=== PATIENT | female | born 1950 | race Asian ===

== ENCOUNTER 2017-09-08 11:32 | Emergency (ER) | payer MEDICARE, MEDICAID ==
[~2017-09-08] VITALS: Ht 154.9 cm; Wt 63.6 kg
[2017-09-08 11:58] LABS: GLUCOSE,POINT OF CARE 171 MG/DL (70-110)
[2017-09-08] MEDS ORDERED: METF500T4 PO (12:06)
[2017-09-08] MEDS ORDERED: GLIP5 PO (12:06)
[2017-09-08] MEDS ORDERED: LEVO75 PO (12:06)
[2017-09-08 12:14] VITALS: BP 152/86
[2017-09-08] MEDS ORDERED: BACITRACIN 0.9 GM PACKET OINTMENT TP ONE (12:30)
== END 2017-09-08 12:36 | disposition home or self-care (01) ==
LOC: EMS 11:34
DX: S01.81XA Laceration without foreign body of other part of head, initial encounter (principal); E11.9 Type 2 diabetes mellitus without complications; Z88.0 Allergy status to penicillin; W22.8XXA Striking against or struck by other objects, initial encounter; Y93.89 Activity, other specified; Y92.89 Other specified places as the place of occurrence of the external cause; Y99.8 Other external cause status
CPT/HCPCS: 82962; 99283

== ENCOUNTER → 2018-02-27 | Outpatient (CLI) | payer MEDICARE, MEDICAID ==
[~2018-02-27] MED LIST: GLIP5 PO; LEVO75 PO; METF500T6 PO
== END | disposition home or self-care (01) ==
LOC: RADPV 09:12
PROVIDERS: ATTEND Family Medicine
DX: R05 Cough (principal)

== ENCOUNTER → 2018-03-10 | Outpatient (CLI) | payer MEDICARE, MEDICAID | END | disposition home or self-care (01) | LOC: RADPV 10:46 | PROVIDERS: ATTEND Family Medicine | DX: I70.0 Atherosclerosis of aorta (principal); E11.9 Type 2 diabetes mellitus without complications ==

== ENCOUNTER → 2018-11-27 | Outpatient (CLI) | payer MEDICARE, MEDICAID ==
[~2018-11-27] MED LIST changes: +METF-960 PO; -METF500T6 PO
== END | disposition home or self-care (01) ==
LOC: RADPV 10:25
PROVIDERS: ATTEND Family Medicine
DX: I70.0 Atherosclerosis of aorta (principal); E11.9 Type 2 diabetes mellitus without complications; R05 Cough; R50.9 Fever, unspecified; Z88.0 Allergy status to penicillin

== ENCOUNTER → 2019-03-20 | Outpatient (CLI) | payer MEDICARE, MEDICAID | END | disposition home or self-care (01) | LOC: RADPV 14:22 | PROVIDERS: ATTEND Family Medicine | DX: M25.522 Pain in left elbow (principal) ==

== ENCOUNTER → 2020-08-22 | Outpatient (CLI) | payer MEDICARE, MEDICAID | END | disposition home or self-care (01) | LOC: RADPV 10:46 | PROVIDERS: ATTEND Family Medicine | DX: M19.042 Primary osteoarthritis, left hand (principal) | CPT/HCPCS: 73130-TC ==

== ENCOUNTER → 2021-01-25 | Outpatient (CLI) | payer MEDICARE, MEDICAID | END | disposition home or self-care (01) | LOC: RADPV 10:17 | PROVIDERS: ATTEND Family Medicine | DX: I70.0 Atherosclerosis of aorta (principal); I67.2 Cerebral atherosclerosis; I67.82 Cerebral ischemia; I63.81 Other cerebral infarction due to occlusion or stenosis of small artery; G93.89 Other specified disorders of brain; R05 Cough; R06.02 Shortness of breath; R51.9 Headache, unspecified | CPT/HCPCS: 70450; 71046 ==

== ENCOUNTER → 2021-02-07 | Outpatient (CLI) | payer MEDICARE, MEDICAID | END | disposition home or self-care (01) | LOC: RADPV 11:44 | PROVIDERS: ATTEND Family Medicine | DX: M85.88 Other specified disorders of bone density and structure, other site (principal); M41.86 Other forms of scoliosis, lumbar region; M41.84 Other forms of scoliosis, thoracic region; M51.36 Other intervertebral disc degeneration, lumbar region; I70.0 Atherosclerosis of aorta | CPT/HCPCS: 72100; 73521 ==

== ENCOUNTER → 2021-02-24 | Outpatient (CLI) | payer MEDICARE, MEDICAID | END | disposition home or self-care (01) | LOC: RADPV 08:13 | PROVIDERS: ATTEND Family Medicine | DX: K80.20 Calculus of gallbladder without cholecystitis without obstruction (principal) | CPT/HCPCS: 76700 ==

== ENCOUNTER → 2021-03-24 | Outpatient (CLI) | payer MEDICARE, MEDICAID | END | disposition home or self-care (01) | LOC: HBOWC 10:19 | PROVIDERS: ATTEND Podiatrist | DX: E11.622 Type 2 diabetes mellitus with other skin ulcer (principal); L97.811 Non-pressure chronic ulcer of other part of right lower leg limited to breakdown of skin; E78.5 Hyperlipidemia, unspecified; M41.84 Other forms of scoliosis, thoracic region; M41.86 Other forms of scoliosis, lumbar region; Z79.84 Long term (current) use of oral hypoglycemic drugs; Z85.89 Personal history of malignant neoplasm of other organs and systems; Z87.891 Personal history of nicotine dependence | CPT/HCPCS: 97597; G0463; 99205 ==

== ENCOUNTER → 2021-03-31 | Outpatient (CLI) | payer MEDICARE, MEDICAID | END | disposition home or self-care (01) | LOC: HBOWC 10:34 | PROVIDERS: ATTEND Podiatrist | DX: E11.622 Type 2 diabetes mellitus with other skin ulcer (principal); L97.811 Non-pressure chronic ulcer of other part of right lower leg limited to breakdown of skin; E78.5 Hyperlipidemia, unspecified; M41.84 Other forms of scoliosis, thoracic region; M41.86 Other forms of scoliosis, lumbar region; L84 Corns and callosities; M85.80 Other specified disorders of bone density and structure, unspecified site; I70.0 Atherosclerosis of aorta; Z79.84 Long term (current) use of oral hypoglycemic drugs; Z85.89 Personal history of malignant neoplasm of other organs and systems; Z87.891 Personal history of nicotine dependence; Z88.0 Allergy status to penicillin | CPT/HCPCS: 97597; G0463 ==

== ENCOUNTER → 2021-04-07 | Outpatient (CLI) | payer MEDICARE, MEDICAID | END | disposition home or self-care (01) | LOC: HBOWC 10:28 | PROVIDERS: ATTEND Podiatrist | DX: E11.622 Type 2 diabetes mellitus with other skin ulcer (principal); L97.811 Non-pressure chronic ulcer of other part of right lower leg limited to breakdown of skin; E78.5 Hyperlipidemia, unspecified; M41.84 Other forms of scoliosis, thoracic region; M41.86 Other forms of scoliosis, lumbar region; L84 Corns and callosities; M85.80 Other specified disorders of bone density and structure, unspecified site; I70.0 Atherosclerosis of aorta; Z79.84 Long term (current) use of oral hypoglycemic drugs; Z85.89 Personal history of malignant neoplasm of other organs and systems; Z87.891 Personal history of nicotine dependence; Z88.0 Allergy status to penicillin | CPT/HCPCS: G0463; Z7500 ==

== ENCOUNTER → 2021-05-24 | Outpatient (CLI) | payer MEDICARE, MEDICAID | END | disposition home or self-care (01) | LOC: RADPV 09:40 | PROVIDERS: ATTEND Family Medicine | DX: M19.042 Primary osteoarthritis, left hand (principal); M85.842 Other specified disorders of bone density and structure, left hand | CPT/HCPCS: 73130-TC ==

== ENCOUNTER 2022-07-05 14:46 | Emergency (ER) | payer MEDICARE, MEDICAID ==
[~2022-07-05] VITALS: Ht 154.9 cm; Wt 56.8 kg
[~2022-07-05 14:46] MED LIST changes: -GLIP5 PO; +GLIP5TAB12 PO; +METF-1211 PO; -METF-960 PO
[2022-07-05] MEDS ORDERED: IBUPROFEN 400 MG TABLET PO ONE (15:45)
[2022-07-05] MEDS ORDERED: ACETAMINOPHEN 500 MG TABLET PO ONE (15:45)
[2022-07-05] MEDS ORDERED: ACET-66 PO (18:35)
[2022-07-05] MEDS ORDERED: IBUP-426 PO (18:35)
[2022-07-05 19:00] VITALS: BP 156/70
== END 2022-07-05 23:56 | disposition home or self-care (01) ==
LOC: EMS 23:56
DX: S13.4XXA Sprain of ligaments of cervical spine, initial encounter (principal); S39.012A Strain of muscle, fascia and tendon of lower back, initial encounter; S80.02XA Contusion of left knee, initial encounter; E11.9 Type 2 diabetes mellitus without complications; D32.9 Benign neoplasm of meninges, unspecified; G20 Parkinson's disease; V49.9XXA Car occupant (driver) (passenger) injured in unspecified traffic accident, initial encounter; Y93.89 Activity, other specified; Y92.89 Other specified places as the place of occurrence of the external cause; Y99.8 Other external cause status; Z85.3 Personal history of malignant neoplasm of breast; Z88.0 Allergy status to penicillin; Z86.011 Personal history of benign neoplasm of the brain; Z90.12 Acquired absence of left breast and nipple
CPT/HCPCS: 72040; 72070; 72100; 82962; 99284

== ENCOUNTER 2023-07-16 08:48 | Emergency (ER) | payer MEDICARE, MEDICAID ==
[~2023-07-16] VITALS: Ht 147.3 cm; Wt 62.1 kg
[~2023-07-16 08:48] MED LIST changes: +ACET-66 PO; +ATOR20TA65 PO; +EZET10TA57 PO; +FAMO20TA8 PO; +GABA-1181 PO; -GLIP5TAB12 PO; +GLIP5TAB15 PO; +IBUP-426 PO; +LEVO100 PO; -LEVO75 PO; +OMEP40CA21 PO
[2023-07-16 09:03] VITALS: TEMP 98.4
[2023-07-16] MEDS ORDERED: SODIUM CHLORIDE 0.9% 1,000 ML IV ONE ×2 (09:15→10:15)
[2023-07-16 09:32] LABS: BASOPHILS % (AUTO) 0.5 % (0.0-2.0); EOSINOPHILS % (AUTO) 1.3 % (1.0-6.0); HEMOGLOBIN 11.6 g/dL (12.0-16.0); LYMPHOCYTES # (AUTO) 0.6 K/uL (1.0-4.8); LYMPHOCYTES % (AUTO) 8.2 % (22.0-44.0); MEAN CORPUSCULAR HEMOGLOBIN 29.5 pg (26.0-34.0); MEAN CORPUSCULAR HGB CONC 33.1 G/dL (31.0-37.0); MEAN CORPUSCULAR VOLUME 89 fL (80-100); MONOCYTES # (AUTO) 0.5 K/uL (0.1-1.0); MONOCYTES % (AUTO) 6.3 % (2.0-9.0); NEUTROPHILS # (AUTO) 6.3 K/uL (1.8-7.7); NEUTROPHILS % (AUTO) 83.7 % (40.0-70.0); PLATELET COUNT (AUTO) 223 K/uL (150-450); RED BLOOD CELL COUNT(AUTO) 3.92 MIL/uL (4.00-5.20); RED CELL DISTRIBUTION WIDTH 13.6 % (11.5-14.5); WHITE BLOOD COUNT (AUTO) 7.5 K/uL (4.5-11.0)
[2023-07-16 09:42] LABS: ANION GAP 6 mmol/L (8-16); CALCIUM, TOTAL 8.1 mg/dL (8.8-10.5); CARBON DIOXIDE 31 mmol/L (22-29); CHLORIDE 97 mmol/L (98-107); CREATININE 0.91 mg/dL (0.60-1.30); GLOMERULAR FILTR. RATE CALC > 60 mL/min (>60); GLUCOSE,RANDOM 247 mg/dL (70-110); POTASSIUM 3.9 mmol/L (3.5-5.1); SODIUM SERUM 134 mmol/L (136-145); UREA NITROGEN, BLOOD 5 mg/dL (7-18)
[2023-07-16 09:51] LABS: TROPONIN I-HIGH SENSITIVITY Less Than 4 ng/L (<51)
[2023-07-16] MEDS ORDERED: ACETAMINOPHEN 500 MG TABLET PO ONE (10:15)
[2023-07-16 10:25] LABS: COVID AG,FIA SOURCE NASAL SWAB
[2023-07-16 10:44] LABS: SARS-COV2 (COVID) ANTIGEN,FIA Negative (Negative)
[2023-07-16 10:45] LABS: INFLUENZA TYPE A NEGATIVE FOR TYPE A (NEGATIVE); INFLUENZA TYPE B NEGATIVE FOR TYPE B (NEGATIVE)
[2023-07-16 11:03] VITALS: BP 128/71; PULSE 108; RESP 19
[2023-07-16 12:41] LABS: GLUCOMETER DEV NAME(LOC) ER.6; GLUCOSE,POINT OF CARE 216 MG/DL (70-110)
== END 2023-07-16 11:45 | disposition home or self-care (01) ==
LOC: EMS 08:48
DX: E86.0 Dehydration (principal); J06.9 Acute upper respiratory infection, unspecified; R53.1 Weakness; E11.9 Type 2 diabetes mellitus without complications; E78.00 Pure hypercholesterolemia, unspecified; I10 Essential (primary) hypertension; Z90.10 Acquired absence of unspecified breast and nipple; Z98.890 Other specified postprocedural states; Z88.0 Allergy status to penicillin; Z20.822 Contact with and (suspected) exposure to COVID-19
CPT/HCPCS: 99285; 96360; 71045; 96361; 87426; 80048; 82962; 84484; 85025; 87804; 36415; 93005; J7030; C9803

== ENCOUNTER 2024-05-15 05:22 | Inpatient (IN) | payer MEDICARE, MEDICAID ==
[~2024-05-15] VITALS: Ht 162.6 cm; Wt 70.0 kg
[~2024-05-15 05:22] MED LIST changes: -ACET-66 PO; +BISA10SU11 PR; +CARB1TAB35 PO; +DOCU-412 PO; -FAMO20TA8 PO; -IBUP-426 PO; -LEVO100 PO; +LEVO75 PO; +LISI2.5T13 PO; +METO5TAB95 PO; +MULT-1297 PO; +OMEP20 PO; +OMEP20CA12 PO; -OMEP40CA21 PO; +POLY17PO62 PO
[2024-05-15 06:03] LABS: BASOPHILS % (AUTO) 0.9 % (0.0-2.0); EOSINOPHILS % (AUTO) 2.2 % (1.0-6.0); HEMATOCRIT 38.4 % (36-46); HEMOGLOBIN 12.3 g/dL (12.0-16.0); LYMPHOCYTES # (AUTO) 1.3 K/uL (1.0-4.8); LYMPHOCYTES % (AUTO) 19.2 % (22.0-44.0); MEAN CORPUSCULAR HEMOGLOBIN 29.2 pg (26.0-34.0); MEAN CORPUSCULAR HGB CONC 32.2 G/dL (31.0-37.0); MEAN CORPUSCULAR VOLUME 91 fL (80-100); MONOCYTES # (AUTO) 0.4 K/uL (0.1-1.0); MONOCYTES % (AUTO) 6.5 % (2.0-9.0); NEUTROPHILS # (AUTO) 4.8 K/uL (1.8-7.7); NEUTROPHILS % (AUTO) 71.2 % (40.0-70.0); PLATELET COUNT (AUTO) 335 K/uL (150-450); RED BLOOD CELL COUNT(AUTO) 4.23 MIL/uL (4.00-5.20); RED CELL DISTRIBUTION WIDTH 13.6 % (11.5-14.5); WHITE BLOOD COUNT (AUTO) 6.8 K/uL (4.5-11.0)
[2024-05-15 06:14] LABS: ANION GAP 12 mmol/L (8-16); CALCIUM, TOTAL 8.7 mg/dL (8.8-10.5); CARBON DIOXIDE 29 mmol/L (22-29); CHLORIDE 99 mmol/L (98-107); CREATININE 0.74 mg/dL (0.60-1.30); GLOMERULAR FILTR. RATE CALC > 60 mL/min (>60); GLUCOSE,RANDOM 139 mg/dL (70-110); POTASSIUM 3.1 mmol/L (3.5-5.1); SODIUM SERUM 140 mmol/L (136-145); UREA NITROGEN, BLOOD 8 mg/dL (7-18)
[2024-05-15 06:16] LABS: APPEARANCE,URINE HAZY (CLEAR); BILIRUBIN,URINE NEGATIVE (NEGATIVE); COLOR,URINE YELLOW (YELLOW); GLUCOSE, URINE (UA) NEGATIVE (NEGATIVE); KETONES,URINE 40-60 mg/dL (NEGATIVE); LEUKOCYTE ESTERASE ,URINE MODERATE (NEGATIVE); NITRATE,URINE NEGATIVE (NEGATIVE); OCCULT BLOOD,URINE NEGATIVE (NEGATIVE); PH,URINE 5.5 (5.0-8.0); PROTEIN,URINE 30-70 mg/dL (NEGATIVE); SPECIFIC GRAVITIY, URINE 1.032 (1.003-1.030)
[2024-05-15 06:20] LABS: ALANINE AMINOTRANSFERASE 24 U/L (12-78); ALBUMIN 3.3 g/dL (3.4-5.0); ALKALINE PHOSPHATASE 62 U/L (46-116); ASPARTATE AMINOTRANSFERASE 30 U/L (15-37); BILIRUBIN,TOTAL 0.9 mg/dL (0.1-1.0); LIPASE 84 U/L (16-77); TOTAL PROTEIN, SERUM 7.2 g/dL (6.4-8.2)
[2024-05-15 06:36] LABS: LACTIC ACID 2.1 mmol/L (0.4-2.0)
[2024-05-15] MEDS ORDERED: SODIUM CHLORIDE 0.9% 100 ML ONE (07:16)
[2024-05-15] MEDS ORDERED: IOHEXOL 350 MG/ML 100 ML VIAL ONE (07:16)
[2024-05-15 07:17] LABS: BACTERIA,URINE Few /HPF (None Seen); RBC,URINE 0-2 /HPF (0-2); SQUAMOUS EPITHELIAL CELL,UR Rare /LPF (None Seen)
[2024-05-15] MEDS: ONDANSETRON HCL 4 MG/2 ML VIAL IVP ONE (07:41)
[2024-05-15] MEDS: SODIUM CHLORIDE 0.9% 1,000 ML IV ONE (07:41)
[2024-05-15] MEDS: ACETAMINOPHEN 1000 MG/ISO-OSM 100 ML IV ONE (07:42)
[2024-05-15] MEDS ORDERED: IPRATROPIUM BROMIDE 0.5 MG/2.5 ML NEB SOLUTION NEB ONE (08:00)
[2024-05-15] MEDS ORDERED: ALBUTEROL SULFATE 2.5 MG/0.5 ML NEB SOLUTION NEB ONE (08:00)
[2024-05-15 08:19] VITALS: PULSE 107; RESP 20; O2SAT 94
[2024-05-15] MEDS ORDERED: ONDANSETRON HCL 4 MG/2 ML VIAL IVP PRN (08:45)
[2024-05-15] MEDS ORDERED: ACETAMINOPHEN 325 MG TABLET PO PRN (08:45)
[2024-05-15] MEDS ORDERED: DEXTROSE 50%-WATER 25 GM/50 ML SYRINGE IVP PRN (09:00)
[2024-05-15 09:12] LABS: ABG BASE EXCESS 0.6 mmol/L (-2.0-3.0); ABG CARBOXYHEMOGLOBIN 0.1 % (0.5-1.5); ABG HCO3 25.4 mmol/L (21.0-28.0); ABG METHEMOGLOBIN 0.8 % (0.0-1.5); ABG OXYGEN CONTENT 19.3 mL/dL (15.0-23.0); ABG OXYGEN SATURATION 99.3 % (94.0-98.0); ABG OXYHEMOGLOBIN 98.4 % (94.0-98.0); ABG PCO2 35 mmHg (32.0-45.0); ABG PH 7.459 (7.350-7.450); ABG TOTAL HEMOGLOBIN 13.8 G/dL (12.0-16.0); PO2, ARTERIAL BG 146.1 mmHg (83.0-108.0); SOURCE, BLOOD GAS ARTERIAL; TEMPERATURE, FAHRENHEIT, BG 98.3 FAHREN (96.0-98.6)
[2024-05-15] MEDS: SODIUM CHLORIDE 0.9% 1,000 ML IV SCH (09:12)
[2024-05-15] MEDS: WATER IV ONE (09:12)
[2024-05-15] MEDS: GENTAMICIN SULFATE IV ONE (09:12)
[2024-05-15] MEDS: DEXTROSE 5% IV ONE (09:12)
[2024-05-15 09:13] LABS: ALLEN TEST, BLOOD GAS Positive; O2 DEVICE,BLOOD GAS HI FL CANNULA (ROOM AIR); SITE, BLOOD GAS RT RADIAL
[2024-05-15] MEDS: PANTOPRAZOLE SODIUM 40 MG/VIAL IVP SCH (09:13)
[2024-05-15 09:50] LABS: INFLUENZA A-RTPCR,COMBO NEGATIVE (NEGATIVE); INFLUENZA B-RTPCR,COMBO NEGATIVE (NEGATIVE); RESPIRATORY SYNCYTIAL VRS-PCR NEGATIVE (NEGATIVE); SARS COVID19 RTPCR, COMBO NEGATIVE (NEGATIVE)
[2024-05-15 09:52] LABS: TROPONIN I-HIGH SENSITIVITY 10 ng/L (<51)
[2024-05-15] MEDS ORDERED: ONDANSETRON 4 MG TABLET PO ONE (11:15)
[2024-05-15] MEDS: POTASSIUM CHL 10 MEQ/WATER 50 ML IV PRN (14:46)
[2024-05-15 16:00] VITALS: BP 111/65; PULSE 84; RESP 18; TEMP 98; O2SAT 100
[2024-05-15] MEDS: HEPARIN SODIUM,PORCINE 5,000 UNITS/ML VIAL SQ SCH (16:07)
[2024-05-15] MEDS ORDERED: SODIUM CHLORIDE 0.9% 250 ML IV ONE (16:12)
[2024-05-15 17:25] LABS: GLUCOMETER DEV NAME(LOC) 5S.1C; GLUCOSE,POINT OF CARE 128 MG/DL (70-110)
[2024-05-15 17:40] LABS: GLUCOMETER DEV NAME(LOC) 5S.1C; GLUCOSE,POINT OF CARE 136 MG/DL (70-110)
[2024-05-15 20:00] VITALS: BP 108/61; PULSE 86; RESP 20; TEMP 98; O2SAT 100
[2024-05-15 21:11] VITALS: PULSE 84; RESP 16; O2SAT 99
[2024-05-15] MEDS: OxyCODONE HCL/ACETAMINOPHEN 5-325 MG TABLET PO PRN (21:17)
[2024-05-15] MEDS: INSULIN LISPRO 100 UNITS/ML SQ PRN (21:23)
[2024-05-16] VITALS: BP 110/64; PULSE 82; RESP 20; TEMP 97.9; O2SAT 100
[2024-05-16 01:21] LABS: GLUCOMETER DEV NAME(LOC) 5S.1C; GLUCOSE,POINT OF CARE 158 MG/DL (70-110)
[2024-05-16 04:00] VITALS: BP 109/62; PULSE 84; RESP 20; TEMP 98; O2SAT 100
[2024-05-16 07:00] VITALS: PULSE 88; RESP 18; O2SAT 98
[2024-05-16 08:21] LABS: GLUCOMETER DEV NAME(LOC) 5S.1C; GLUCOSE,POINT OF CARE 94 MG/DL (70-110)
[2024-05-16] MEDS ORDERED: IOHEXOL 350 MG/ML 100 ML VIAL ONE (11:20)
[2024-05-16] MEDS ORDERED: SODIUM CHLORIDE 0.9% 100 ML ONE (11:20)
[2024-05-16] MEDS: CefTRIAXone 1 GM/DEXTROSE 50 ML IV SCH (11:34)
[2024-05-16] MEDS ORDERED: HEPARIN SODIUM,PORCINE 5,000 UNITS/ML VIAL IVP PRN ×2 (16:45)
[2024-05-16 17:21] LABS: GLUCOMETER DEV NAME(LOC) 5S.2D; GLUCOSE,POINT OF CARE 134 MG/DL (70-110)
[2024-05-16 18:01] LABS: BASOPHILS % (AUTO) 0.4 % (0.0-2.0); EOSINOPHILS % (AUTO) 3.2 % (1.0-6.0); HEMATOCRIT 37.2 % (36-46); HEMOGLOBIN 11.8 g/dL (12.0-16.0); LYMPHOCYTES # (AUTO) 1.3 K/uL (1.0-4.8); LYMPHOCYTES % (AUTO) 18.1 % (22.0-44.0); MEAN CORPUSCULAR HEMOGLOBIN 28.9 pg (26.0-34.0); MEAN CORPUSCULAR HGB CONC 31.8 G/dL (31.0-37.0); MEAN CORPUSCULAR VOLUME 91 fL (80-100); MONOCYTES # (AUTO) 0.5 K/uL (0.1-1.0); MONOCYTES % (AUTO) 7.4 % (2.0-9.0); NEUTROPHILS # (AUTO) 5.2 K/uL (1.8-7.7); NEUTROPHILS % (AUTO) 70.9 % (40.0-70.0); PLATELET COUNT (AUTO) 303 K/uL (150-450); RED BLOOD CELL COUNT(AUTO) 4.09 MIL/uL (4.00-5.20); RED CELL DISTRIBUTION WIDTH 13.6 % (11.5-14.5); WHITE BLOOD COUNT (AUTO) 7.3 K/uL (4.5-11.0)
[2024-05-16 18:10] LABS: INR 1.1 (0.9-1.1); PROTHROMBIN TIME 11.8 SEC (9.4-11.6)
[2024-05-16] MEDS: HEPARIN SODIUM,PORCINE 5,000 UNITS/ML VIAL IVP ONE (18:39)
[2024-05-16] MEDS: HEPARIN SODIUM 25000 UNITS/D5W 250 ML IV PRN (18:41)
[2024-05-16 20:12] VITALS: BP 104/55; PULSE 89; RESP 18; TEMP 98.2
[2024-05-16] MEDS ORDERED: MORPHINE SULFATE 2 MG/ML SYRINGE IVP PRN (20:15)
[2024-05-16 23:23] VITALS: BP 112/68; PULSE 88; RESP 18; TEMP 98; O2SAT 99
[2024-05-17 00:55] LABS: GLUCOMETER DEV NAME(LOC) 5S.2D; GLUCOSE,POINT OF CARE 187 MG/DL (70-110)
[2024-05-17 00:55] LABS: GLUCOMETER DEV NAME(LOC) 5S.2D; GLUCOSE,POINT OF CARE 174 MG/DL (70-110)
[2024-05-17 04:00] VITALS: BP 110/68; PULSE 87; RESP 19; TEMP 97.9; O2SAT 99
[2024-05-17 07:29] LABS: BASOPHILS % (AUTO) 0.4 % (0.0-2.0); EOSINOPHILS % (AUTO) 4.3 % (1.0-6.0); HEMATOCRIT 35.9 % (36-46); HEMOGLOBIN 11.6 g/dL (12.0-16.0); LYMPHOCYTES # (AUTO) 1.5 K/uL (1.0-4.8); LYMPHOCYTES % (AUTO) 23.1 % (22.0-44.0); MEAN CORPUSCULAR HEMOGLOBIN 29.5 pg (26.0-34.0); MEAN CORPUSCULAR HGB CONC 32.4 G/dL (31.0-37.0); MEAN CORPUSCULAR VOLUME 91 fL (80-100); MONOCYTES # (AUTO) 0.6 K/uL (0.1-1.0); MONOCYTES % (AUTO) 9.4 % (2.0-9.0); NEUTROPHILS % (AUTO) 62.8 % (40.0-70.0); PLATELET COUNT (AUTO) 270 K/uL (150-450); RED BLOOD CELL COUNT(AUTO) 3.95 MIL/uL (4.00-5.20); RED CELL DISTRIBUTION WIDTH 13.8 % (11.5-14.5); WHITE BLOOD COUNT (AUTO) 6.3 K/uL (4.5-11.0)
[2024-05-17 07:53] LABS: ANION GAP 11 mmol/L (8-16); CARBON DIOXIDE 28 mmol/L (22-29); CHLORIDE 102 mmol/L (98-107); CREATININE 0.58 mg/dL (0.60-1.30); GLOMERULAR FILTR. RATE CALC > 60 mL/min (>60); GLUCOSE,RANDOM 123 mg/dL (70-110); POTASSIUM 3.1 mmol/L (3.5-5.1); SODIUM SERUM 141 mmol/L (136-145); UREA NITROGEN, BLOOD 3 mg/dL (7-18)
[2024-05-17 08:00] VITALS: BP 116/65; PULSE 85; RESP 18; TEMP 97.6; O2SAT 100
[2024-05-17 08:15] LABS: GLUCOMETER DEV NAME(LOC) 5S.1C; GLUCOSE,POINT OF CARE 142 MG/DL (70-110)
[2024-05-17 12:00] VITALS: BP 119/67; PULSE 81; RESP 18; TEMP 98.1; O2SAT 100
[2024-05-17 14:11] LABS: GLUCOMETER DEV NAME(LOC) 5S.1C; GLUCOSE,POINT OF CARE 149 MG/DL (70-110)
[2024-05-17] MEDS: POTASSIUM CHLORIDE 20 MEQ ER TABLET PO PRN (14:58)
[2024-05-17 16:00] VITALS: BP 111/64; PULSE 77; RESP 18; TEMP 98.2; O2SAT 100
[2024-05-17 20:00] VITALS: BP 112/61; PULSE 85; RESP 18; TEMP 98.1; O2SAT 100
[2024-05-17 20:30] LABS: GLUCOMETER DEV NAME(LOC) 5S.2D; GLUCOSE,POINT OF CARE 153 MG/DL (70-110)
[2024-05-17 22:31] LABS: GLUCOMETER DEV NAME(LOC) 5S.1C; GLUCOSE,POINT OF CARE 158 MG/DL (70-110)
[2024-05-18] VITALS: BP 120/64; PULSE 91; RESP 18; TEMP 98.3; O2SAT 100
[2024-05-18 03:41] VITALS: BP 118/60; PULSE 88; RESP 18; TEMP 97.8; O2SAT 100
[2024-05-18 06:26] LABS: GLUCOMETER DEV NAME(LOC) 5S.1C; GLUCOSE,POINT OF CARE 151 MG/DL (70-110)
[2024-05-18 09:00] VITALS: BP 114/69; PULSE 83; RESP 18; TEMP 97.6; O2SAT 98
[2024-05-18 12:00] VITALS: BP 107/64; PULSE 80; RESP 18; TEMP 98.2; O2SAT 99
[2024-05-18 17:00] VITALS: BP 133/75; PULSE 87; RESP 18; TEMP 98.1; O2SAT 94
[2024-05-18] MEDS ORDERED: APIXABAN 5 MG TABLET PO ONE (18:00)
[2024-05-18] MEDS ORDERED: CEPH-558 PO (18:03)
[2024-05-18] MEDS ORDERED: APIX5TAB PO (18:03)
[2024-05-18] MEDS: APIXABAN 5 MG TABLET PO ONE (18:29)
[2024-05-18 19:57] VITALS: BP 158/74; PULSE 97; RESP 19; TEMP 98.2; O2SAT 98
[2024-05-18 20:46] LABS: GLUCOMETER DEV NAME(LOC) 5S.2D; GLUCOSE,POINT OF CARE 133 MG/DL (70-110)
[2024-05-18 20:46] LABS: GLUCOMETER DEV NAME(LOC) 5S.2D; GLUCOSE,POINT OF CARE 211 MG/DL (70-110)
[2024-05-18 22:31] LABS: GLUCOMETER DEV NAME(LOC) 5S.1C; GLUCOSE,POINT OF CARE 179 MG/DL (70-110)
== END 2024-05-18 17:53 | disposition home or self-care (01) | DRG 134 ==
LOC: EMS 05:22 → EDH 09:19 → 5S 12:19
PROVIDERS: ADMIT Internal Medicine; ATTEND Internal Medicine
PROC: 5A0945A Assistance with Respiratory Ventilation, 24-96 Consecutive Hours, High Flow/Velocity Cannula (ICD-10-PCS; principal; 2024-05-15)
DX: I26.99 Other pulmonary embolism without acute cor pulmonale (principal); J96.01 Acute respiratory failure with hypoxia; J69.0 Pneumonitis due to inhalation of food and vomit; N39.0 Urinary tract infection, site not specified; G20.A1 Parkinson's disease without dyskinesia, without mention of fluctuations; E11.9 Type 2 diabetes mellitus without complications; E03.9 Hypothyroidism, unspecified; E87.6 Hypokalemia; R91.8 Other nonspecific abnormal finding of lung field; I10 Essential (primary) hypertension; Z20.822 Contact with and (suspected) exposure to COVID-19; J98.11 Atelectasis; E78.00 Pure hypercholesterolemia, unspecified; K44.9 Diaphragmatic hernia without obstruction or gangrene; K76.0 Fatty (change of) liver, not elsewhere classified; Z83.3 Family history of diabetes mellitus; Z85.3 Personal history of malignant neoplasm of breast; Z86.011 Personal history of benign neoplasm of the brain; Z86.19 Personal history of other infectious and parasitic diseases; Z88.0 Allergy status to penicillin; Z90.49 Acquired absence of other specified parts of digestive tract
CPT/HCPCS: 0241U; 36600; 71045; 71275; 74177; 80048; 80076; 81001; 82271; 82805; 82962; 83605; 83690; 83880; 84132; 84484; 85025; 85610; 85730; 87040; 87086; 87186; 93005; 93970; 94760; 97162; 97530; 99285; C9113; J0131; J0696; J1580; J1644; J2405; J3480; J7030; J7050; J7060; Q0162; 36415-L1; 36415-TC

== ENCOUNTER 2024-06-03 03:22 | Inpatient (IN) | payer MEDICARE, MEDICAID ==
[~2024-06-03] VITALS: Ht 162.6 cm; Wt 62.0 kg
[~2024-06-03 03:22] MED LIST changes: +APIX5TAB PO; +CEPH-558 PO
[2024-06-03 04:39] LABS: BASOPHILS % (AUTO) 0.8 % (0.0-2.0); HEMATOCRIT 37.2 % (36-46); HEMOGLOBIN 11.9 g/dL (12.0-16.0); LYMPHOCYTES # (AUTO) 1.5 K/uL (1.0-4.8); LYMPHOCYTES % (AUTO) 29.7 % (22.0-44.0); MEAN CORPUSCULAR HEMOGLOBIN 29.2 pg (26.0-34.0); MEAN CORPUSCULAR VOLUME 91 fL (80-100); MONOCYTES # (AUTO) 0.4 K/uL (0.1-1.0); MONOCYTES % (AUTO) 7.2 % (2.0-9.0); NEUTROPHILS # (AUTO) 2.8 K/uL (1.8-7.7); NEUTROPHILS % (AUTO) 56.3 % (40.0-70.0); PLATELET COUNT (AUTO) 336 K/uL (150-450); RED BLOOD CELL COUNT(AUTO) 4.08 MIL/uL (4.00-5.20); RED CELL DISTRIBUTION WIDTH 14.3 % (11.5-14.5)
[2024-06-03 04:58] LABS: ANION GAP 4 mmol/L (8-16); CALCIUM, TOTAL 8.5 mg/dL (8.8-10.5); CARBON DIOXIDE 33 mmol/L (22-29); CHLORIDE 100 mmol/L (98-107); CREATININE 0.73 mg/dL (0.60-1.30); GLOMERULAR FILTR. RATE CALC > 60 mL/min (>60); GLUCOSE,RANDOM 159 mg/dL (70-110); POTASSIUM 3.7 mmol/L (3.5-5.1); SODIUM SERUM 137 mmol/L (136-145); UREA NITROGEN, BLOOD 7 mg/dL (7-18)
[2024-06-03 05:04] LABS: ALANINE AMINOTRANSFERASE 28 U/L (12-78); ALBUMIN 3.2 g/dL (3.4-5.0); ALKALINE PHOSPHATASE 62 U/L (46-116); ASPARTATE AMINOTRANSFERASE 31 U/L (15-37); BILIRUBIN,TOTAL 0.5 mg/dL (0.1-1.0); TOTAL PROTEIN, SERUM 7.5 g/dL (6.4-8.2)
[2024-06-03 05:06] LABS: PROTHROMBIN TIME 10.1 SEC (9.4-11.6)
[2024-06-03] MEDS: IOHEXOL 9 MG/ML 500 ML BOTTLE PO ONE (05:08)
[2024-06-03 05:09] LABS: TROPONIN I-HIGH SENSITIVITY 5 ng/L (<51)
[2024-06-03 05:21] LABS: B-TYPE NATRIURETIC PEPTIDE < 5 pg/mL (0-100)
[2024-06-03] MEDS: SODIUM PHOSPHATE,MONO-DIBASIC 133 ML ENEMA PR ONE (08:22)
[2024-06-03] MEDS ORDERED: MAGNESIUM HYDROXIDE SUSPENSION 30 ML UDCUP PO PRN (08:45)
[2024-06-03] MEDS ORDERED: BISACODYL 10 MG RECTAL RECTAL SUPPOSITORY PR PRN (08:45)
[2024-06-03] MEDS ORDERED: ONDANSETRON HCL 4 MG/2 ML VIAL IVP PRN (08:45)
[2024-06-03] MEDS ORDERED: DEXTROSE 50%-WATER 25 GM/50 ML SYRINGE IVP PRN (08:45)
[2024-06-03] MEDS ORDERED: ACETAMINOPHEN 325 MG TABLET PO PRN (08:45)
[2024-06-03] MEDS: FAMOTIDINE 20 MG TABLET PO SCH (10:24)
[2024-06-03] MEDS: POLYETHYLENE GLYCOL 3350 17 GM PACKET PO SCH (10:24)
[2024-06-03] MEDS: DOCUSATE SODIUM 100 MG CAPSULE PO SCH (10:24)
[2024-06-03] MEDS: APIXABAN 5 MG TABLET PO SCH (10:24)
[2024-06-03 12:50] VITALS: BP 125/68; PULSE 103; RESP 18; TEMP 98.1; O2SAT 98
[2024-06-03] MEDS: CARBIDOPA/LEVODOPA 25-100 MG TABLET PO SCH (15:59)
[2024-06-03 16:00] VITALS: BP 125/75; PULSE 81; RESP 18; TEMP 98.1; O2SAT 20
[2024-06-03 20:15] VITALS: BP 130/82; PULSE 82; RESP 18; TEMP 97.8; O2SAT 99
[2024-06-03] MEDS: INSULIN LISPRO 100 UNITS/ML SQ PRN (20:41)
[2024-06-03 21:31] LABS: GLUCOMETER DEV NAME(LOC) ERT.6; GLUCOSE,POINT OF CARE 155 MG/DL (70-110)
[2024-06-03 22:06] LABS: GLUCOMETER DEV NAME(LOC) 6N.2B; GLUCOSE,POINT OF CARE 162 MG/DL (70-110)
[2024-06-04 04:49] VITALS: BP 106/70; PULSE 75; RESP 18; TEMP 97.7; O2SAT 99
[2024-06-04 09:35] VITALS: BP 130/78; PULSE 76; RESP 18; TEMP 97.7; O2SAT 96
[2024-06-04 11:20] LABS: GLUCOMETER DEV NAME(LOC) 4E.2; GLUCOSE,POINT OF CARE 180 MG/DL (70-110)
[2024-06-04 21:00] LABS: GLUCOMETER DEV NAME(LOC) 6N.2B; GLUCOSE,POINT OF CARE 165 MG/DL (70-110)
== END 2024-06-04 17:30 | disposition home or self-care (01) | DRG 254 ==
LOC: EMS 03:22 → EDH 08:46 → 4E 13:43
PROVIDERS: ADMIT Internal Medicine; ATTEND Internal Medicine
DX: K59.00 Constipation, unspecified (principal); G20.A1 Parkinson's disease without dyskinesia, without mention of fluctuations; E11.9 Type 2 diabetes mellitus without complications; R62.50 Unspecified lack of expected normal physiological development in childhood; Z86.711 Personal history of pulmonary embolism; Z79.01 Long term (current) use of anticoagulants; Z86.011 Personal history of benign neoplasm of the brain; Z88.0 Allergy status to penicillin; I10 Essential (primary) hypertension; E78.00 Pure hypercholesterolemia, unspecified
CPT/HCPCS: 71045; 74176; 80053; 82962; 83880; 84484; 85025; 85610; 85730; 93005; 99285; G0378; 36415-L1; 36415-TC

== ENCOUNTER 2024-07-25 07:11 | Emergency (ER) | payer MEDICARE, MEDICAID ==
[~2024-07-25] VITALS: Ht 152.4 cm; Wt 61.4 kg
[~2024-07-25 07:11] MED LIST changes: -APIX5TAB PO; -BISA10SU11 PR; -CEPH-558 PO; -EZET10TA57 PO; -GLIP5TAB15 PO; -METO5TAB95 PO; -OMEP20 PO; -POLY17PO62 PO; +TRIA15CR49 TP
[2024-07-25 07:22] VITALS: TEMP 98.8
[2024-07-25 07:47] LABS: BASOPHILS % (AUTO) 0.8 % (0.0-2.0); EOSINOPHILS % (AUTO) 5.2 % (1.0-6.0); HEMATOCRIT 36.1 % (36-46); HEMOGLOBIN 11.7 g/dL (12.0-16.0); LYMPHOCYTES # (AUTO) 1.3 K/uL (1.0-4.8); MEAN CORPUSCULAR HEMOGLOBIN 29.2 pg (26.0-34.0); MEAN CORPUSCULAR HGB CONC 32.4 G/dL (31.0-37.0); MEAN CORPUSCULAR VOLUME 90 fL (80-100); MONOCYTES # (AUTO) 0.4 K/uL (0.1-1.0); MONOCYTES % (AUTO) 7.5 % (2.0-9.0); NEUTROPHILS # (AUTO) 2.8 K/uL (1.8-7.7); NEUTROPHILS % (AUTO) 59.5 % (40.0-70.0); PLATELET COUNT (AUTO) 294 K/uL (150-450); RED BLOOD CELL COUNT(AUTO) 4.01 MIL/uL (4.00-5.20); RED CELL DISTRIBUTION WIDTH 13.9 % (11.5-14.5); WHITE BLOOD COUNT (AUTO) 4.7 K/uL (4.5-11.0)
[2024-07-25 07:55] LABS: ANION GAP 4 mmol/L (8-16); CALCIUM, TOTAL 8.5 mg/dL (8.8-10.5); CARBON DIOXIDE 33 mmol/L (22-29); CHLORIDE 103 mmol/L (98-107); CREATININE 0.66 mg/dL (0.60-1.30); GLOMERULAR FILTR. RATE CALC > 60 mL/min (>60); GLUCOSE,RANDOM 197 mg/dL (70-110); POTASSIUM 3.2 mmol/L (3.5-5.1); SODIUM SERUM 140 mmol/L (136-145); UREA NITROGEN, BLOOD 13 mg/dL (7-18)
[2024-07-25 08:01] LABS: ALANINE AMINOTRANSFERASE 21 U/L (12-78); ALBUMIN 3.3 g/dL (3.4-5.0); ALKALINE PHOSPHATASE 67 U/L (46-116); ASPARTATE AMINOTRANSFERASE 19 U/L (15-37); BILIRUBIN,TOTAL 0.8 mg/dL (0.1-1.0)
[2024-07-25] MEDS: MAGNESIUM CITRATE [LEMON] 300 ML ORAL SOLUTION PO ONE (08:14)
[2024-07-25 08:18] LABS: TROPONIN I-HIGH SENSITIVITY Less Than 4 ng/L (<51)
[2024-07-25] MEDS: POTASSIUM CHLORIDE 10% 40 MEQ/30 ML LIQUID UDCUP PO ONE (08:59)
[2024-07-25 09:00] VITALS: BP 123/76; PULSE 95; RESP 16; O2SAT 97
[2024-07-25 09:07] LABS: APPEARANCE,URINE CLEAR (CLEAR); BILIRUBIN,URINE NEGATIVE (NEGATIVE); COLOR,URINE YELLOW (YELLOW); GLUCOSE, URINE (UA) TRACE mg/dL (NEGATIVE); KETONES,URINE TRACE mg/dL (NEGATIVE); LEUKOCYTE ESTERASE ,URINE MODERATE (NEGATIVE); NITRATE,URINE NEGATIVE (NEGATIVE); OCCULT BLOOD,URINE NEGATIVE (NEGATIVE); PROTEIN,URINE TRACE mg/dL (NEGATIVE); SPECIFIC GRAVITIY, URINE 1.025 (1.003-1.030)
[2024-07-25 09:25] LABS: BACTERIA,URINE Moderate /HPF (None Seen); CALCIUM OXALATE CRYSTALS,UR Moderate /LPF (None Seen); RBC,URINE 0-2 /HPF (0-2); SQUAMOUS EPITHELIAL CELL,UR Few /LPF (None Seen)
[2024-07-25] MEDS ORDERED: NITR-75 PO (10:07)
[2024-07-25] MEDS: NITROFURANTOIN MONOHYD/M-CRYST 100 MG CAPSULE [MACROBID] PO ONE (10:16)
== END 2024-07-25 09:05 | disposition home or self-care (01) ==
LOC: EMS 07:13
DX: K59.00 Constipation, unspecified (principal); E11.9 Type 2 diabetes mellitus without complications; E78.00 Pure hypercholesterolemia, unspecified; I10 Essential (primary) hypertension; G20.A1 Parkinson's disease without dyskinesia, without mention of fluctuations; Z85.3 Personal history of malignant neoplasm of breast; Z88.0 Allergy status to penicillin
CPT/HCPCS: 71045; 80048; 80076; 81001; 82962; 84484; 85025; 87077; 87086; 87186; 93005; 99285; 36415-L1; 36415-TC